=== PATIENT | female | born 1970 | race Caucasian/White ===

== ENCOUNTER 2017-10-11 00:51 | Emergency (ER) | payer OTHER ==
[~2017-10-11] VITALS: Ht 144.8 cm; Wt 63.5 kg
[~2017-10-11 00:51] MED LIST: CEPH500; GLIM2 PO; LOSHYD PO; OMEPRAZOLE MAGN20 MG PO; Pyridium200 MG; Zofran8 MG PO
[2017-10-11] MEDS ORDERED: DILTIAZEM 24HR240 M1 PO (01:15)
[2017-10-11] MEDS ORDERED: METO25ER PO (01:16)
[2017-10-11] MEDS ORDERED: Doxycycline Hy100 MG PO (01:39)
== END 2017-10-11 01:57 | disposition home or self-care (01) ==
LOC: ER 00:51
DX: L02.416 Cutaneous abscess of left lower limb (principal); L03.116 Cellulitis of left lower limb; Z88.8 Allergy status to other drugs, medicaments and biological substances; Z88.2 Allergy status to sulfonamides; Z88.0 Allergy status to penicillin; Z91.040 Latex allergy status; Z79.899 Other long term (current) drug therapy; Z79.2 Long term (current) use of antibiotics; E11.9 Type 2 diabetes mellitus without complications; K21.9 Gastro-esophageal reflux disease without esophagitis; I10 Essential (primary) hypertension; F17.200 Nicotine dependence, unspecified, uncomplicated
CPT/HCPCS: 10060; 99283-25

== ENCOUNTER 2018-06-14 17:11 | Inpatient (IN) | payer OTHER ==
[~2018-06-14] VITALS: Ht 144.8 cm; Wt 59.0 kg
[~2018-06-14 17:11] MED LIST changes: +DILTIAZEM 24HR240 M1 PO; +Doxycycline Hy100 MG PO; +METO25ER PO; +Norco 5-325 Ta1 EACH PO; +PROM25 PO; +Ultram50 MG PO; +Vibramycin100 MG PO
[2018-06-14] MEDS ORDERED: NAPR220 PO (17:54)
[2018-06-14 18:12] LABS: BASOPHILS ABSOLUTE AUTO 0.05 K/mm3 (0.00-0.23); BASOPHILS PERCENT AUTO 0 % (0-2); EOSINOPHILS ABSOLUTE AUTO 0.11 K/mm3 (0.00-0.68); EOSINOPHILS PERCENT AUTO 1 % (0-6); Hematocrit 45.5 % (33.0-51.0); Hemoglobin 14.9 g/dL (11.5-16.0); IMMATURE GRAN ABSOLUTE AUTO 0.06 K/mm3 (0.00-0.10); IMMATURE GRAN PERCENT AUTO 1 % (0-1); LYMPHOCYTES ABSOLUTE AUTO 0.98 K/mm3 (0.84-5.20); LYMPHOCYTES PERCENT AUTO 8 % (21-46); MONOCYTES ABSOLUTE AUTO 0.76 K/mm3 (0.16-1.47); MONOCYTES PERCENT AUTO 6 % (4-13); Mean Corpuscular HGB 29.9 pg (26.0-34.0); Mean Corpuscular HGB Conc 32.7 g/dL (31.5-36.5); Mean Corpuscular Volume 91 fL (80-100); Mean Platelet Volume 11.9 fL (9.1-12.4); NEUTROPHILS PERCENT AUTO 85 % (41-73); Platelet Count 153 K/mm3 (150-400); RDW Coefficient Variation 12.6 % (11.7-14.2); RDW Standard Deviation 41.7 fL (35.1-46.3); Red Blood Cell Count 4.99 M/mm3 (3.80-5.20); White Blood Cell Count 13.06 K/mm3 (4.00-11.30)
[2018-06-14 18:31] LABS: Alanine Aminotransfer (ALT/SGP 29 U/L (12-78); Albumin, Blood 3.3 g/dL (3.4-5.0); Albumin/Globulin Ratio 0.7 (0.8-1.8); Alk Phos 125 U/L (50-136); Anion Gap 8 mmol/L (6-16); Aspartate Aminotrans (AST/SGOT 17 U/L (12-37); Bilirubin, Total 0.5 mg/dL (0.1-1.0); Blood Urea Nitrogen 15 mg/dL (8-24); Bun/Creatinine Ratio 20.8 (12.0-20.0); CO2, Blood 25 mmol/L (21-32); Calcium, Blood 9.5 mg/dL (8.5-10.1); Chloride, Blood 97 mmol/L (98-108); Creatinine, Blood 0.72 mg/dL (0.40-1.00); Globulin, Blood 4.7 g/dL (2.2-4.0); Glomerular Filtration Rate >60 (60-); Glucose, Blood 395 mg/dL (70-99); Potassium, Blood 4.3 mmol/L (3.5-5.5); Sodium, Blood 130 mmol/L (136-145)
[2018-06-14] MEDS ORDERED: LOSARTAN-HCTZ1 EACH PO (20:34)
[2018-06-14] MEDS ORDERED: METO25ER PO (20:35)
[2018-06-14] MEDS ORDERED: DILT120 PO (20:35)
[2018-06-14] MEDS ORDERED: GLIM2 PO (20:36)
[2018-06-14] MEDS ORDERED: OMEPRAZOLE MAGN20 MG PO (20:37)
[2018-06-14] MEDS ORDERED: TRAM50 PO (20:38)
--- NOTE | 2018-06-15 07:23 | NUR ---
a+o, photo of wounds in chart, call light in reach, pain controlled with medication, saline locked room air, walking rounds completed with day shift
[2018-06-15 13:33] LABS: Vancomycin, Trough 11.3 ug/mL (5.0-10.0)
--- NOTE | 2018-06-15 18:47 | NUR ---
SHIFT SUMMARY PATIENT REMAINS AXO. PAIN MANAGEMENT IS DIFFICULT. A CALL IS BEING PLACED TO HER PHYSICIAN TO DISCUSS SOMETHING FURTHER.
[2018-06-16 05:39] LABS: BASOPHILS ABSOLUTE AUTO 0.05 K/mm3 (0.00-0.23); BASOPHILS PERCENT AUTO 1 % (0-2); EOSINOPHILS ABSOLUTE AUTO 0.36 K/mm3 (0.00-0.68); EOSINOPHILS PERCENT AUTO 5 % (0-6); Hematocrit 38.7 % (33.0-51.0); Hemoglobin 12.4 g/dL (11.5-16.0); IMMATURE GRAN ABSOLUTE AUTO 0.04 K/mm3 (0.00-0.10); IMMATURE GRAN PERCENT AUTO 1 % (0-1); LYMPHOCYTES ABSOLUTE AUTO 1.83 K/mm3 (0.84-5.20); LYMPHOCYTES PERCENT AUTO 26 % (21-46); MONOCYTES ABSOLUTE AUTO 0.45 K/mm3 (0.16-1.47); MONOCYTES PERCENT AUTO 6 % (4-13); Mean Corpuscular HGB 29.5 pg (26.0-34.0); Mean Corpuscular Volume 92 fL (80-100); Mean Platelet Volume 11.8 fL (9.1-12.4); NEUTROPHILS ABSOLUTE AUTO 4.32 K/mm3 (1.96-9.15); NEUTROPHILS PERCENT AUTO 61 % (41-73); Platelet Count 147 K/mm3 (150-400); RDW Coefficient Variation 12.7 % (11.7-14.2); RDW Standard Deviation 42.8 fL (35.1-46.3); White Blood Cell Count 7.05 K/mm3 (4.00-11.30)
[2018-06-16 06:05] LABS: Anion Gap 7 mmol/L (6-16); Blood Urea Nitrogen 14 mg/dL (8-24); Bun/Creatinine Ratio 27.1 (12.0-20.0); CO2, Blood 25 mmol/L (21-32); Calcium, Blood 8.8 mg/dL (8.5-10.1); Chloride, Blood 105 mmol/L (98-108); Creatinine, Blood 0.52 mg/dL (0.40-1.00); Glomerular Filtration Rate >60 (60-); Glucose, Blood 158 mg/dL (70-99); Sodium, Blood 137 mmol/L (136-145)
--- NOTE | 2018-06-16 06:22 | NUR ---
SHIFT SUMMARY PT A/O INDEPENDENT. C/O PAIN IN HEAD AND R BUTTOCK I&D AREA AND MEDICATED PER EMAR X2. SHE WAS ABLE TO SLEEP T/O NIGHT AFTER THAT. SHE STATED THAT HER I&D WOULD WAS DRAINING LESS THAN IT HAD BEEN PREVIOUSLY. WENT OUTSIDE TO SMOKE ONCE. CALL LIGHT IN REACH.
--- NOTE | 2018-06-16 18:31 | NUR ---
SHIFT SUMMARY PT INDEPENDENT IN ROOM. HAS GONE OUT TO SMOKE THIS MORNING AND HASN'T SINCE. FAMIY IN TO VISIT THIS EVENING. REPORTS LEGS ARE RESTLESS IN BED AND BOTHERING HER. ENCOURAGED HER TO WALK AROUND MORE TO EASE DISCOMFORT. DR. LUDWIG IN TO SEE PT THIS MORNING SHORTLY AFTER BREAKFAST AND LANCED R FOREHEAD SCAB. PT REPORTS HE GOT MORE THAN ANTICIPATED. ALSO REPORTS DR. LUDWIG REMOVED PACKING IN BUTTOCK WOUND. NO NEW DRESSING REQUIRED. DRESSING IN PLACE TO R FOREHEAD WITH NO BREAKTHROUGH DRAINAGE.
[2018-06-17 05:24] LABS: BASOPHILS ABSOLUTE AUTO 0.04 K/mm3 (0.00-0.23); BASOPHILS PERCENT AUTO 1 % (0-2); EOSINOPHILS ABSOLUTE AUTO 0.33 K/mm3 (0.00-0.68); EOSINOPHILS PERCENT AUTO 5 % (0-6); Hematocrit 37.4 % (33.0-51.0); Hemoglobin 12.2 g/dL (11.5-16.0); IMMATURE GRAN ABSOLUTE AUTO 0.03 K/mm3 (0.00-0.10); IMMATURE GRAN PERCENT AUTO 1 % (0-1); LYMPHOCYTES PERCENT AUTO 30 % (21-46); MONOCYTES ABSOLUTE AUTO 0.45 K/mm3 (0.16-1.47); MONOCYTES PERCENT AUTO 7 % (4-13); Mean Corpuscular HGB 29.7 pg (26.0-34.0); Mean Corpuscular HGB Conc 32.6 g/dL (31.5-36.5); Mean Corpuscular Volume 91 fL (80-100); Mean Platelet Volume 11.8 fL (9.1-12.4); NEUTROPHILS ABSOLUTE AUTO 3.54 K/mm3 (1.96-9.15); NEUTROPHILS PERCENT AUTO 56 % (41-73); Platelet Count 153 K/mm3 (150-400); RDW Coefficient Variation 12.6 % (11.7-14.2); RDW Standard Deviation 41.2 fL (35.1-46.3); Red Blood Cell Count 4.11 M/mm3 (3.80-5.20); White Blood Cell Count 6.29 K/mm3 (4.00-11.30)
--- NOTE | 2018-06-17 05:46 | NUR ---
SHIFT SUMMARY PT WENT OUTSIDE X1 THIS SHIFT, REMOVED NICOTINE PATCH SO SHE COULD SMOKE. PT SLEPT WELL T/O NIGHT. PT RECEIVED PAIN MEDICATION AT BEDTIME. SALINE FIELD SEISMOLOGIST WITH FLUSH, BUT MEDICATIONS INFUSE WELL, WILL KEEP AN EYE ON IT. PT STATES SHE HAS ALREADY HAD 3 IV'S SINCE BEING ADMITTED BECAUSE HER VEINS BECOME TOO TENDER. NO ACUTE EVENTS NOTED DURING THE NIGHT, WILL CONTINUE TO MONITOR.
[2018-06-17 05:47] LABS: Anion Gap 5 mmol/L (6-16); Blood Urea Nitrogen 12 mg/dL (8-24); Bun/Creatinine Ratio 21.3 (12.0-20.0); CO2, Blood 28 mmol/L (21-32); Calcium, Blood 8.6 mg/dL (8.5-10.1); Chloride, Blood 105 mmol/L (98-108); Creatinine, Blood 0.56 mg/dL (0.40-1.00); Glomerular Filtration Rate >60 (60-); Glucose, Blood 109 mg/dL (70-99); Potassium, Blood 3.8 mmol/L (3.5-5.5); Sodium, Blood 138 mmol/L (136-145)
[2018-06-17 14:02] LABS: Vancomycin, Trough 21.5 ug/mL (5.0-10.0)
--- NOTE | 2018-06-17 17:54 | NUR ---
SUMMARY PT IS A/O X4, UP IND IN ROOM/AMBULATE OUTSIDE. SHE STATE PAIN @ ABC[facility] SITE S/P I&D R BUTTOCK & ALSO R EYE AREA, GAVE IV DILAUDID 1 MG THIS AM & ULTRAM 100MG THIS AFTERNOON FOR CONTROL/RELIEF. BACTROBAN OINT TO SITE R EYE AREA & L ABD FOLD. PT STATE MODESTY R/T R BUTTOCKS ASSESSMENT, FEMALE DOPE HOUSE OPERATOR HELPER IN TO ASSESS AREA, STATE NO DRAINAGE @ THIS TIME, STATE OK FOR PT TO COVER W PERIPAD & MADONNA UNDERWEAR TO KEEP IN PLACE. IV ANTIBX CONTINUE. IV SITE RFA TENDER, PINK, SWOLLEN THIS AM, D/C'D. DOPE HOUSE OPERATOR HELPER PLACE NEW 20GA MADHU. VSS.
[2018-06-18 05:45] LABS: BASOPHILS ABSOLUTE AUTO 0.03 K/mm3 (0.00-0.23); BASOPHILS PERCENT AUTO 1 % (0-2); EOSINOPHILS ABSOLUTE AUTO 0.28 K/mm3 (0.00-0.68); EOSINOPHILS PERCENT AUTO 5 % (0-6); Hematocrit 37.7 % (33.0-51.0); Hemoglobin 12.1 g/dL (11.5-16.0); IMMATURE GRAN ABSOLUTE AUTO 0.02 K/mm3 (0.00-0.10); IMMATURE GRAN PERCENT AUTO 0 % (0-1); LYMPHOCYTES ABSOLUTE AUTO 1.68 K/mm3 (0.84-5.20); LYMPHOCYTES PERCENT AUTO 28 % (21-46); MONOCYTES ABSOLUTE AUTO 0.34 K/mm3 (0.16-1.47); MONOCYTES PERCENT AUTO 6 % (4-13); Mean Corpuscular HGB 29.2 pg (26.0-34.0); Mean Corpuscular HGB Conc 32.1 g/dL (31.5-36.5); Mean Corpuscular Volume 91 fL (80-100); Mean Platelet Volume 11.8 fL (9.1-12.4); NEUTROPHILS ABSOLUTE AUTO 3.67 K/mm3 (1.96-9.15); NEUTROPHILS PERCENT AUTO 61 % (41-73); Platelet Count 147 K/mm3 (150-400); RDW Coefficient Variation 12.4 % (11.7-14.2); RDW Standard Deviation 41.1 fL (35.1-46.3); Red Blood Cell Count 4.14 M/mm3 (3.80-5.20); White Blood Cell Count 6.02 K/mm3 (4.00-11.30)
--- NOTE | 2018-06-18 05:51 | NUR ---
SHIFT SUMMARY PT HAVING C/O'S IV SITE FEELING TENDER AND SORE, UNABLE TO FLUSH WITHOUT PT MOANING IN PAIN. SIGHT SLIGHTLY REDDENED. IV DC'D. 2 ICU NURSES UP WITH U/S MACHINE AND TRIED GETTING ANOTHER IV IN X 3 ATTEMPTS. PT REFUSING TO HAVE ANOTHER IV PLACED. HOSPITALIST CALLED, ORDERS RECEIVED FOR PO ANTIBIOTICS DURING THE NIGHT AND POSSIBLE PLACEMENT OF PICC TODAY PENDING DOCTOR ROUNDS. PT OUTSIDE FOR A SMOKE X2 THIS SHIFT. SLEPT FAIR. WILL CONTINUE TO MONITOR.
[2018-06-18] MEDS ORDERED: ACET325 PO (16:29)
[2018-06-18] MEDS ORDERED: CEPH500 PO (16:30)
[2018-06-18] MEDS ORDERED: DOXY100 PO (16:31)
[2018-06-18] MEDS ORDERED: Norco 5-325 Ta1 EACH PO (16:32)
[2018-06-18] MEDS ORDERED: INSDET100 SC (16:33)
[2018-06-18] MEDS ORDERED: KETO10 PO (16:34)
[2018-06-18] MEDS ORDERED: Mupirocin22 GM TOP (16:35)
[2018-06-18] MEDS ORDERED: ONDA4ODT MM (16:36)
[2018-06-18] MEDS ORDERED: Nicoderm Cq1 EAC1 TOP (16:36)
[2018-06-18] MEDS ORDERED: GAVILAX17 GM PO (16:37)
[2018-06-18] MEDS ORDERED: Florastor250 MG PO (16:37)
--- NOTE | 2018-06-18 19:22 | NUR ---
DISCHARGE SUMMARY PATIENT A&O X4, INDEPENDENT. C/O PAIN TO FOREHEAD AND BUTTOCKS THROUGHOUT SHIFT. MEDICATED PER EMAR. MEDICATED X 1 FOR NAUSEA. WOUND TO RIGHT FOREHEAD AND RIGHT BUTTOCKS DRESSING IN PLACE, C/D/I. INSULIN ADMINISTRATION EDUCATION PROVIDED FOR THE PATIENT. DEMONONSTRATION BY RN AND RE DEMONSTRATION BY PATIENT WAS PREFORMED. NO ACUTE CHANGES. ALL DISCHARGE IN STRUCTIONS REVIEWED. MEDICATIONS FAXED. PT NEEDS PRIMARY CARE SET UP WITH DR. POWELL AT [facility]. MESSAGE LEFT WITH QUALITY CONTROL EXPERT COORDINATOR TO FOLLOW UP WITH PT FOR PU APPTS. NO IV ACCESS. PATIENT WALKED OUT. FAMILY BY HER SIDE. ALL BELONINGINGS IN PLACE.
== END 2018-06-18 19:02 | disposition home or self-care (01) | DRG 872 ==
LOC: ER 17:11 → MEDS 20:26 → ENPENDDIS 06-18 15:23 → MEDS 06-18 19:02
PROVIDERS: Emergency Medicine; Family Medicine; ADMIT Internal Medicine
PROC: 0H98XZX Drainage of Buttock Skin, External Approach, Diagnostic (ICD-10-PCS; principal; 2018-06-14)
PROC: 0H91XZZ Drainage of Face Skin, External Approach (ICD-10-PCS; 2018-06-16)
DX: A41.02 Sepsis due to Methicillin resistant Staphylococcus aureus (principal); L03.213 Periorbital cellulitis; L03.317 Cellulitis of buttock; E87.1 Hypo-osmolality and hyponatremia; L02.01 Cutaneous abscess of face; L03.211 Cellulitis of face; E11.9 Type 2 diabetes mellitus without complications; R65.20 Severe sepsis without septic shock; I10 Essential (primary) hypertension; K21.9 Gastro-esophageal reflux disease without esophagitis; K44.9 Diaphragmatic hernia without obstruction or gangrene; F17.210 Nicotine dependence, cigarettes, uncomplicated; Z79.4 Long term (current) use of insulin
CPT/HCPCS: 10061; 36415; 70480; 70481; 80048; 80053; 80202; 82947; 83036; 83605; 84443; 85025; 87070; 87075; 87077; 87147; 87186; 87205; 93005; 93010; 96361-59; 96365-59; 96367-59; 96375-59; 96376-59; 99284-25; A9270-GY; J0690; J1170; J1200; J1650; J1885; J2405; J3010; J3370; J7030; J7050; Q9967

== ENCOUNTER → 2018-07-22 | Outpatient (CLI) | payer OTHER ==
[~2018-07-22] MED LIST changes: +ACET325 PO; +CEPH500 PO; +DILT120 PO; +DOXY100 PO; +Florastor250 MG PO; +GAVILAX17 GM PO; +INSDET100 SC; +KETO10 PO; +LOSARTAN-HCTZ1 EACH PO; +Mupirocin22 GM TOP; +NAPR220 PO; +Nicoderm Cq1 EAC1 TOP; +ONDA4ODT MM; +TRAM50 PO
[2018-07-24 03:09] LABS: CHLAMYDIA TRACHOMATIS, NAA Negative (Negative); NEISSERIA GONORRHOEAE, NAA Negative (Negative)
== END | disposition home or self-care (01) ==
LOC: LAB EV 10:35 → LAB SHORT 10:35
PROVIDERS: Nurse Practitioner
DX: Z72.51 High risk heterosexual behavior (principal)
CPT/HCPCS: 87491; 87591

== ENCOUNTER 2019-02-28 10:49 | Emergency (ER) | payer OTHER ==
[~2019-02-28] VITALS: Ht 144.8 cm; Wt 60.8 kg
[2019-02-28 11:44] LABS: BASOPHILS ABSOLUTE AUTO 0.03 K/mm3 (0.00-0.23); BASOPHILS PERCENT AUTO 1 % (0-2); EOSINOPHILS ABSOLUTE AUTO 0.08 K/mm3 (0.00-0.68); EOSINOPHILS PERCENT AUTO 1 % (0-6); Hematocrit 50.2 % (33.0-51.0); Hemoglobin 16.6 g/dL (11.5-16.0); IMMATURE GRAN ABSOLUTE AUTO 0.02 K/mm3 (0.00-0.10); IMMATURE GRAN PERCENT AUTO 0 % (0-1); LYMPHOCYTES ABSOLUTE AUTO 1.51 K/mm3 (0.84-5.20); LYMPHOCYTES PERCENT AUTO 24 % (21-46); MONOCYTES ABSOLUTE AUTO 0.28 K/mm3 (0.16-1.47); MONOCYTES PERCENT AUTO 5 % (4-13); Mean Corpuscular HGB Conc 33.1 g/dL (31.5-36.5); Mean Corpuscular Volume 91 fL (80-100); NEUTROPHILS ABSOLUTE AUTO 4.35 K/mm3 (1.96-9.15); NEUTROPHILS PERCENT AUTO 69 % (41-73); Platelet Count 169 K/mm3 (150-400); RDW Coefficient Variation 12.8 % (11.7-14.2); RDW Standard Deviation 42.5 fL (35.1-46.3); Red Blood Cell Count 5.53 M/mm3 (3.80-5.20); White Blood Cell Count 6.27 K/mm3 (4.00-11.30)
[2019-02-28 11:59] LABS: Alanine Aminotransfer (ALT/SGP 45 U/L (12-78); Albumin, Blood 4.4 g/dL (3.4-5.0); Albumin/Globulin Ratio 0.8 (0.8-1.8); Alk Phos 161 U/L (50-136); Anion Gap 9 mmol/L (6-16); Aspartate Aminotrans (AST/SGOT 29 U/L (12-37); Bilirubin, Total 0.3 mg/dL (0.1-1.0); Blood Urea Nitrogen 17 mg/dL (8-24); Bun/Creatinine Ratio 28.8 (12.0-20.0); CO2, Blood 26 mmol/L (21-32); Calcium, Blood 10.1 mg/dL (8.5-10.1); Chloride, Blood 98 mmol/L (98-108); Creatinine, Blood 0.59 mg/dL (0.40-1.00); Globulin, Blood 5.2 g/dL (2.2-4.0); Glomerular Filtration Rate >60 (60-); Glucose, Blood 375 mg/dL (70-99); Potassium, Blood 4.6 mmol/L (3.5-5.5); Sodium, Blood 133 mmol/L (136-145); Total Protein, Blood 9.6 g/dL (6.4-8.2)
[2019-02-28 12:19] LABS: Source, Urine Clean Catch
[2019-02-28 12:23] LABS: Appearance, Urine Clear (Clear); Bilirubin, Urine Neg (Neg); Blood, Urine Neg (Neg); Color, Urine Yellow (P-Yellow); Glucose Qualitative, Urine 4+ (Neg); Ketones, Urine Neg (Neg); Leukocyte Esterase, Urine Neg (Neg); Nitrite, Urine Neg (Neg); Protein, Urine Neg (Neg); Urobilinogen, Urine NORM (Normal)
[2019-02-28] MEDS ORDERED: Percocet 5-3251 EACH PO (15:45)
[2019-02-28] MEDS ORDERED: Naprosyn500 MG PO (15:45)
== END 2019-02-28 16:23 | disposition home or self-care (01) ==
LOC: ER 10:49
PROVIDERS: Emergency Medicine
DX: E11.9 Type 2 diabetes mellitus without complications (principal); M54.5 Low back pain; I10 Essential (primary) hypertension; K21.9 Gastro-esophageal reflux disease without esophagitis; F17.210 Nicotine dependence, cigarettes, uncomplicated; Z91.040 Latex allergy status; Z88.2 Allergy status to sulfonamides; Z88.0 Allergy status to penicillin; Z88.8 Allergy status to other drugs, medicaments and biological substances; Z79.899 Other long term (current) drug therapy; Z79.4 Long term (current) use of insulin
CPT/HCPCS: 36415; 72100; 80053; 81003; 83690; 85025; 96372; 99283-25; J1170; J2550

== ENCOUNTER 2019-04-24 15:39 | Emergency (ER) | payer OTHER ==
[~2019-04-24] VITALS: Ht 144.8 cm; Wt 60.3 kg
[~2019-04-24 15:39] MED LIST changes: +Naprosyn500 MG PO; +Percocet 5-3251 EACH PO
[2019-04-24 16:25] LABS: BASOPHILS ABSOLUTE AUTO 0.06 K/mm3 (0.00-0.23); BASOPHILS PERCENT AUTO 1 % (0-2); EOSINOPHILS ABSOLUTE AUTO 0.12 K/mm3 (0.00-0.68); EOSINOPHILS PERCENT AUTO 1 % (0-6); Hematocrit 48.2 % (33.0-51.0); Hemoglobin 16.1 g/dL (11.5-16.0); IMMATURE GRAN ABSOLUTE AUTO 0.03 K/mm3 (0.00-0.10); IMMATURE GRAN PERCENT AUTO 0 % (0-1); LYMPHOCYTES ABSOLUTE AUTO 2.03 K/mm3 (0.84-5.20); LYMPHOCYTES PERCENT AUTO 23 % (21-46); MONOCYTES ABSOLUTE AUTO 0.44 K/mm3 (0.16-1.47); MONOCYTES PERCENT AUTO 5 % (4-13); Mean Corpuscular HGB 30.5 pg (26.0-34.0); Mean Corpuscular HGB Conc 33.4 g/dL (31.5-36.5); Mean Corpuscular Volume 91 fL (80-100); NEUTROPHILS PERCENT AUTO 69 % (41-73); Platelet Count 212 K/mm3 (150-400); RDW Coefficient Variation 12.5 % (11.7-14.2); RDW Standard Deviation 41.9 fL (35.1-46.3); Red Blood Cell Count 5.28 M/mm3 (3.80-5.20); White Blood Cell Count 8.68 K/mm3 (4.00-11.30)
[2019-04-24 16:45] LABS: Alanine Aminotransfer (ALT/SGP 31 U/L (12-78); Albumin, Blood 3.6 g/dL (3.4-5.0); Albumin/Globulin Ratio 0.8 (0.8-1.8); Alk Phos 113 U/L (50-136); Anion Gap 2 mmol/L (6-16); Aspartate Aminotrans (AST/SGOT 22 U/L (12-37); Bilirubin, Total 0.4 mg/dL (0.1-1.0); Blood Urea Nitrogen 15 mg/dL (8-24); Bun/Creatinine Ratio 26.9 (12.0-20.0); CO2, Blood 27 mmol/L (21-32); Chloride, Blood 104 mmol/L (98-108); Creatinine, Blood 0.56 mg/dL (0.40-1.00); Globulin, Blood 4.3 g/dL (2.2-4.0); Glomerular Filtration Rate >60 (60-); Glucose, Blood 324 mg/dL (70-99); Potassium, Blood 3.6 mmol/L (3.5-5.5); Sodium, Blood 133 mmol/L (136-145); Total Protein, Blood 7.9 g/dL (6.4-8.2)
[2019-04-24] MEDS ORDERED: Aspirin EC81 MG PO (19:51)
== END 2019-04-24 20:06 | disposition home or self-care (01) ==
LOC: ER 15:39
PROVIDERS: Physician Assistant
DX: R20.2 Paresthesia of skin (principal); E11.65 Type 2 diabetes mellitus with hyperglycemia; I10 Essential (primary) hypertension; K21.9 Gastro-esophageal reflux disease without esophagitis; F17.210 Nicotine dependence, cigarettes, uncomplicated; Z88.0 Allergy status to penicillin; Z88.2 Allergy status to sulfonamides; Z91.040 Latex allergy status; Z88.8 Allergy status to other drugs, medicaments and biological substances; Z79.4 Long term (current) use of insulin; Z79.899 Other long term (current) drug therapy
CPT/HCPCS: 36415; 70450; 80053; 85025; 93005; 93010; A9270-GY

== ENCOUNTER → 2022-09-25 | Outpatient (CLI) | payer OTHER ==
[~2022-09-25] MED LIST changes: +Aspirin EC81 MG PO
== END ==
LOC: LAB SHORT 15:55 → LAB 15:55
DX: N39.0 Urinary tract infection, site not specified (principal)
CPT/HCPCS: 87077; 87086; 87186

== ENCOUNTER 2022-11-19 17:43 | Emergency (ER) | payer OTHER ==
[~2022-11-19] VITALS: Ht 144.8 cm; Wt 53.1 kg
[2022-11-19 19:07] LABS: BASOPHILS ABSOLUTE AUTO 0.05 K/mm3 (0.00-0.23); BASOPHILS PERCENT AUTO 0 % (0-2); EOSINOPHILS ABSOLUTE AUTO 0.05 K/mm3 (0.00-0.68); EOSINOPHILS PERCENT AUTO 0 % (0-6); Hematocrit 48.9 % (33.0-51.0); Hemoglobin 16.1 g/dL (11.5-16.0); IMMATURE GRAN ABSOLUTE AUTO 0.08 K/mm3 (0.00-0.10); IMMATURE GRAN PERCENT AUTO 1 % (0-1); LYMPHOCYTES ABSOLUTE AUTO 1.68 K/mm3 (0.84-5.20); LYMPHOCYTES PERCENT AUTO 11 % (21-46); MONOCYTES ABSOLUTE AUTO 0.87 K/mm3 (0.16-1.47); MONOCYTES PERCENT AUTO 6 % (4-13); Mean Corpuscular HGB 30.6 pg (26.0-34.0); Mean Corpuscular HGB Conc 32.9 g/dL (31.5-36.5); Mean Corpuscular Volume 93 fL (80-100); NEUTROPHILS PERCENT AUTO 82 % (41-73); Platelet Count 203 K/mm3 (150-400); RDW Coefficient Variation 13.1 % (11.7-14.2); RDW Standard Deviation 44.3 fL (35.1-46.3); Red Blood Cell Count 5.27 M/mm3 (3.80-5.20); White Blood Cell Count 15.23 K/mm3 (4.00-11.30)
[2022-11-19 19:26] LABS: Albumin/Globulin Ratio 0.8 (0.8-1.8); Bilirubin, Total 0.4 mg/dL (0.1-1.0); Bun/Creatinine Ratio 24.5 (12.0-20.0); Calcium, Blood 9.8 mg/dL (8.5-10.1); Creatinine, Blood 1.02 mg/dL (0.40-1.00); Globulin, Blood 5.2 g/dL (2.2-4.0); Total Protein, Blood 9.2 g/dL (6.4-8.2)
[2022-11-19 22:22] VITALS: BP 130/87
[2022-11-21] MEDS ORDERED: METR500 PO (20:16)
[2022-11-21] MEDS ORDERED: DICY20 PO (20:16)
[2022-11-21] MEDS ORDERED: Percocet 5-3251 EACH PO ×2 (20:16→20:19)
== END 2022-11-20 00:53 | disposition home or self-care (01) ==
LOC: ER 17:43
PROVIDERS: Emergency Medicine
DX: K52.9 Noninfective gastroenteritis and colitis, unspecified (principal); R00.0 Tachycardia, unspecified; F17.210 Nicotine dependence, cigarettes, uncomplicated
CPT/HCPCS: 74177; 80053; 83690; 85025; 93005; 93010; 96361; 96374; 96375; 96376; 99285-25; A9270; J1170; J2405; J7030; Q9967

== ENCOUNTER → 2022-11-20 | Outpatient (CLI) | payer OTHER ==
[~2022-11-20] MED LIST changes: +DICY20 PO; +METR500 PO
[2022-11-20 14:17] LABS: Adenovirus F 40/41 Not Detected (NOT DETECT); Astrovirus Not Detected (NOT DETECT); Campylobacter Sp Not Detected (NOT DETECT); Cryptosporidium Not Detected (NOT DETECT); Cyclospora Cayetanensis Not Detected (NOT DETECT); E. Coli O157 Not Detected (NOT DETECT); Entamoeba Histolytica Not Detected (NOT DETECT); Enteroaggregative E. coli-EAEC Not Detected (NOT DETECT); Enteropathogenic E. coli-EPEC Not Detected (NOT DETECT); Enterotoxigenic E. coli-ETEC Not Detected (NOT DETECT); Giardia Lamblia Not Detected (NOT DETECT); Norovirus GI/GII Not Detected (NOT DETECT); Plesiomonas Shigelloides Not Detected (NOT DETECT); Rotavirus A Not Detected (NOT DETECT); Salmonella Sp Not Detected (NOT DETECT); Sapovirus Not Detected (NOT DETECT); Shiga Toxin-prod E. coli-STEC Not Detected (NOT DETECT); Shigella/Enteroin E. coli-EIEC Not Detected (NOT DETECT); Vibrio Cholerae Not Detected (NOT DETECT); Vibrio Sp Not Detected (NOT DETECT); Yersinia Enterocolitica Not Detected (NOT DETECT)
== END ==
LOC: LAB 12:02 → LAB SHORT 12:02
PROVIDERS: Internal Medicine Gastroenterology
DX: K52.9 Noninfective gastroenteritis and colitis, unspecified (principal)
CPT/HCPCS: 87507

== ENCOUNTER 2022-11-21 14:28 | Emergency (ER) | payer OTHER ==
[~2022-11-21] VITALS: Ht 144.8 cm; Wt 53.1 kg
[~2022-11-21 14:28] MED LIST changes: -DICY20 PO; -METR500 PO
[2022-11-21 15:29] LABS: BASOPHILS ABSOLUTE AUTO 0.03 K/mm3 (0.00-0.23); BASOPHILS PERCENT AUTO 0 % (0-2); EOSINOPHILS PERCENT AUTO 1 % (0-6); Hematocrit 44.7 % (33.0-51.0); Hemoglobin 14.7 g/dL (11.5-16.0); IMMATURE GRAN ABSOLUTE AUTO 0.03 K/mm3 (0.00-0.10); IMMATURE GRAN PERCENT AUTO 0 % (0-1); LYMPHOCYTES ABSOLUTE AUTO 1.77 K/mm3 (0.84-5.20); LYMPHOCYTES PERCENT AUTO 21 % (21-46); MONOCYTES ABSOLUTE AUTO 0.49 K/mm3 (0.16-1.47); MONOCYTES PERCENT AUTO 6 % (4-13); Mean Corpuscular HGB 30.6 pg (26.0-34.0); Mean Corpuscular HGB Conc 32.9 g/dL (31.5-36.5); Mean Corpuscular Volume 93 fL (80-100); Mean Platelet Volume 11.9 fL (9.1-12.4); NEUTROPHILS ABSOLUTE AUTO 5.94 K/mm3 (1.96-9.15); NEUTROPHILS PERCENT AUTO 71 % (41-73); Platelet Count 159 K/mm3 (150-400); RDW Standard Deviation 44.3 fL (35.1-46.3); Red Blood Cell Count 4.81 M/mm3 (3.80-5.20); White Blood Cell Count 8.36 K/mm3 (4.00-11.30)
[2022-11-21 15:48] LABS: Albumin, Blood 3.7 g/dL (3.4-5.0); Bilirubin, Total 0.3 mg/dL (0.1-1.0); Bun/Creatinine Ratio 15.1 (12.0-20.0); Calcium, Blood 9.2 mg/dL (8.5-10.1); Creatinine, Blood 0.73 mg/dL (0.40-1.00); Globulin, Blood 3.7 g/dL (2.2-4.0); Magnesium, Blood 1.8 mg/dL (1.6-2.4); Potassium, Blood 3.5 mmol/L (3.5-5.5); Total Protein, Blood 7.4 g/dL (6.4-8.2)
[2022-11-21] MEDS ORDERED: DICY20 PO (20:16)
[2022-11-21] MEDS ORDERED: Percocet 5-3251 EACH PO ×2 (20:16→20:19)
[2022-11-21] MEDS ORDERED: METR500 PO (20:16)
[2022-11-21 21:03] VITALS: BP 152/90
== END 2022-11-21 21:04 | disposition home or self-care (01) ==
LOC: ER 14:28
PROVIDERS: Physician Assistant
DX: K52.9 Noninfective gastroenteritis and colitis, unspecified (principal); E11.9 Type 2 diabetes mellitus without complications; I10 Essential (primary) hypertension; K21.9 Gastro-esophageal reflux disease without esophagitis; F17.210 Nicotine dependence, cigarettes, uncomplicated; Z88.8 Allergy status to other drugs, medicaments and biological substances; Z88.2 Allergy status to sulfonamides; Z88.1 Allergy status to other antibiotic agents; Z88.0 Allergy status to penicillin; Z91.040 Latex allergy status; Z79.899 Other long term (current) drug therapy; Z79.4 Long term (current) use of insulin; Z79.82 Long term (current) use of aspirin
CPT/HCPCS: 80053; 82947; 83690; 83735; 85025; 96361; 96372-59; 96374; 96375; 99283-25; A9270; J0500; J1170; J2405; J7030

== ENCOUNTER 2022-12-10 11:09 | Day surgery (SDC) | payer OTHER ==
[~2022-12-10] VITALS: Ht 144.8 cm; Wt 54.2 kg
[~2022-12-10 11:09] MED LIST changes: +DICY20 PO; +METR500 PO
[2022-12-10] MEDS ORDERED: TOUJEO MAX300 UNIT/2 (11:32)
[2022-12-10] MEDS ORDERED: Crestor40 MG (11:32)
[2022-12-10] MEDS ORDERED: JARDIANCE25 MG (11:32)
[2022-12-10] MEDS ORDERED: TRULICITY1.5 MG/0.1 (11:33)
[2022-12-10 15:32] VITALS: BP 128/84
== END 2022-12-10 13:31 | disposition home or self-care (01) ==
LOC: ORSCSDS 11:09
PROVIDERS: Internal Medicine Gastroenterology
PROC: 0DBE8ZX Excision of Large Intestine, Via Natural or Artificial Opening Endoscopic, Diagnostic (ICD-10-PCS; principal; 2022-12-10 12:15)
PROC: 0DB58ZX Excision of Esophagus, Via Natural or Artificial Opening Endoscopic, Diagnostic (ICD-10-PCS; principal; 2022-12-10 12:15)
PROC: 0DB98ZX Excision of Duodenum, Via Natural or Artificial Opening Endoscopic, Diagnostic (ICD-10-PCS; principal; 2022-12-10 12:15)
PROC: 0DBN8ZX Excision of Sigmoid Colon, Via Natural or Artificial Opening Endoscopic, Diagnostic (ICD-10-PCS; principal; 2022-12-10 12:15)
PROC: 0DB78ZX Excision of Stomach, Pylorus, Via Natural or Artificial Opening Endoscopic, Diagnostic (ICD-10-PCS; principal; 2022-12-10 12:15)
DX: K62.5 Hemorrhage of anus and rectum (principal); K21.9 Gastro-esophageal reflux disease without esophagitis; R10.84 Generalized abdominal pain; K31.7 Polyp of stomach and duodenum; R19.7 Diarrhea, unspecified; K57.30 Diverticulosis of large intestine without perforation or abscess without bleeding; K29.70 Gastritis, unspecified, without bleeding; Z87.891 Personal history of nicotine dependence; E11.9 Type 2 diabetes mellitus without complications; Z86.73 Personal history of transient ischemic attack (TIA), and cerebral infarction without residual deficits; Z79.899 Other long term (current) drug therapy; Z79.82 Long term (current) use of aspirin; Z79.4 Long term (current) use of insulin
CPT/HCPCS: 82947; 88305; A9270; J2704; J7120

== ENCOUNTER 2025-01-15 10:20 | Emergency (ER) | payer OTHER ==
[~2025-01-15] VITALS: Ht 144.8 cm; Wt 54.4 kg
[~2025-01-15 10:20] MED LIST changes: +Crestor40 MG; +JARDIANCE25 MG; +TOUJEO MAX300 UNIT/2; +TRULICITY1.5 MG/0.1
[2025-01-15] MEDS ORDERED: Ketorolac Tromethamine 15mg Vial IV ONE (11:10)
[2025-01-15 11:21] LABS: BASOPHILS ABSOLUTE AUTO 0.05 K/mm3 (0.00-0.23); BASOPHILS PERCENT AUTO 1 % (0-2); EOSINOPHILS ABSOLUTE AUTO 0.21 K/mm3 (0.00-0.68); EOSINOPHILS PERCENT AUTO 3 % (0-6); Hematocrit 46.1 % (33.0-51.0); Hemoglobin 15.3 g/dL (11.5-16.0); IMMATURE GRAN ABSOLUTE AUTO 0.04 K/mm3 (0.00-0.10); IMMATURE GRAN PERCENT AUTO 1 % (0-1); LYMPHOCYTES ABSOLUTE AUTO 1.58 K/mm3 (0.84-5.20); LYMPHOCYTES PERCENT AUTO 25 % (21-46); MONOCYTES ABSOLUTE AUTO 0.33 K/mm3 (0.16-1.47); MONOCYTES PERCENT AUTO 5 % (4-13); Mean Corpuscular HGB Conc 33.2 g/dL (31.5-36.5); Mean Corpuscular Volume 94 fL (80-100); NEUTROPHILS ABSOLUTE AUTO 4.05 K/mm3 (1.96-9.15); NEUTROPHILS PERCENT AUTO 65 % (41-73); NRBC ABSOLUTE 0.00 K/mm3 (0.00-0.02); NRBC Auto 0.0 /100 WBC (0.0-0.2); Platelet Count 139 K/mm3 (150-400); RDW Coefficient Variation 12.6 % (11.7-14.2); RDW Standard Deviation 43.7 fL (35.1-46.3)
[2025-01-15] MEDS ORDERED: FentaNYL Citrate 50 MCG/ML 2 ML Injection IV ONE (13:15)
[2025-01-15] MEDS ORDERED: Ondansetron HCl 2 MG / ML 2ML Vial IV ONE (13:15)
[2025-01-15 13:53] LABS: Source, Urine Clean Catch
[2025-01-15 14:06] LABS: Alanine Aminotransfer (ALT/SGP 56.0 U/L (12-78); Albumin, Blood 3.4 g/dL (3.4-5.0); Albumin/Globulin Ratio 0.9 (0.8-1.8); Anion Gap 8.0 mmol/L (3-11); Aspartate Aminotrans (AST/SGOT 45.0 U/L (12-37); Bilirubin, Total 0.3 mg/dL (0.1-1.0); Blood Urea Nitrogen 12.0 mg/dL (8-24); CO2, Blood 26.0 mmol/L (21-32); Calcium, Blood 8.7 mg/dL (8.5-10.1); Chloride, Blood 104.0 mmol/L (98-108); Creatinine, Blood 0.73 mg/dL (0.40-1.00); Globulin, Blood 3.7 g/dL (2.2-4.0); Glucose, Blood 329.0 mg/dL (70-99); Potassium, Blood 4.9 mmol/L (3.5-5.5); Sodium, Blood 133.0 mmol/L (136-145); Total Protein, Blood 7.1 g/dL (6.4-8.2)
[2025-01-15 14:45] LABS: Bilirubin, Urine Neg (Neg); Color, Urine Yellow (P-Yellow); Glucose Qualitative, Urine 4+ (Neg); Ketones, Urine 1+ (Neg); Leukocyte Esterase, Urine Neg (Neg); Protein, Urine 2+ (Neg); Specific Gravity, Urine 1.010 (1.003-1.022); Urobilinogen, Urine NORM (Normal)
[2025-01-15 15:16] LABS: White Blood Cells, Urine 0-2 /hpf (0-5)
[2025-01-15] MEDS ORDERED: ONDA4ODT MM (15:41)
[2025-01-15] MEDS ORDERED: TIZA4 PO (15:41)
[2025-01-15 15:44] VITALS: BP 125/77
== END 2025-01-15 15:47 | disposition home or self-care (01) ==
LOC: ER 10:20
PROVIDERS: Physician Assistant
DX: M62.838 Other muscle spasm (principal); R10.A2 Flank pain, left side; E11.9 Type 2 diabetes mellitus without complications; I10 Essential (primary) hypertension; K21.9 Gastro-esophageal reflux disease without esophagitis; Z79.82 Long term (current) use of aspirin; Z79.4 Long term (current) use of insulin; Z88.0 Allergy status to penicillin; Z91.040 Latex allergy status; Z88.8 Allergy status to other drugs, medicaments and biological substances; Z88.1 Allergy status to other antibiotic agents
CPT/HCPCS: 36415; 74177; 80053; 81001; 81025; 85025; 96374-59; 96375; 99284-25; A9270; J1885; J2405; J3010; Q9967

== ENCOUNTER 2025-01-17 06:12 | Emergency (ER) | payer OTHER ==
[~2025-01-17] VITALS: Ht 144.8 cm; Wt 120.0 kg
[~2025-01-17 06:12] MED LIST changes: +TIZA4 PO
[2025-01-17] MEDS ORDERED: Morphine Sulfate 4 MG/1 ML Injection IV ONE (07:10)
[2025-01-17] MEDS ORDERED: NS 1,000 ML IV SCH (07:10)
[2025-01-17] MEDS ORDERED: Ondansetron HCl 2 MG / ML 2ML Vial IV ONE (07:45)
[2025-01-17 08:04] LABS: BASOPHILS ABSOLUTE AUTO 0.05 K/mm3 (0.00-0.23); BASOPHILS PERCENT AUTO 1 % (0-2); EOSINOPHILS ABSOLUTE AUTO 0.27 K/mm3 (0.00-0.68); EOSINOPHILS PERCENT AUTO 3 % (0-6); Hematocrit 47.2 % (33.0-51.0); Hemoglobin 15.7 g/dL (11.5-16.0); IMMATURE GRAN ABSOLUTE AUTO 0.03 K/mm3 (0.00-0.10); IMMATURE GRAN PERCENT AUTO 0 % (0-1); LYMPHOCYTES ABSOLUTE AUTO 2.25 K/mm3 (0.84-5.20); LYMPHOCYTES PERCENT AUTO 23 % (21-46); MONOCYTES ABSOLUTE AUTO 0.50 K/mm3 (0.16-1.47); MONOCYTES PERCENT AUTO 5 % (4-13); Mean Corpuscular HGB Conc 33.3 g/dL (31.5-36.5); Mean Corpuscular Volume 93 fL (80-100); NEUTROPHILS ABSOLUTE AUTO 6.77 K/mm3 (1.96-9.15); NEUTROPHILS PERCENT AUTO 69 % (41-73); NRBC ABSOLUTE 0.00 K/mm3 (0.00-0.02); NRBC Auto 0.0 /100 WBC (0.0-0.2); Platelet Count 160 K/mm3 (150-400); RDW Coefficient Variation 12.9 % (11.7-14.2); RDW Standard Deviation 43.6 fL (35.1-46.3)
[2025-01-17 08:19] LABS: Anion Gap 8.0 mmol/L (3-11); Blood Urea Nitrogen 13.0 mg/dL (8-24); CO2, Blood 27.0 mmol/L (21-32); Calcium, Blood 9.3 mg/dL (8.5-10.1); Chloride, Blood 106.0 mmol/L (98-108); Creatinine, Blood 0.76 mg/dL (0.40-1.00); Glucose, Blood 288.0 mg/dL (70-99); Potassium, Blood 4.4 mmol/L (3.5-5.5); Sodium, Blood 137.0 mmol/L (136-145)
[2025-01-17] MEDS ORDERED: Methyl Salicylate/Menth/Camph 57 GM TUBE TOP ONE (08:35)
[2025-01-17] MEDS ORDERED: Lidocaine 4% 1 Patch TOP ONE (08:40)
[2025-01-17 10:28] LABS: Source, Urine Clean Catch
[2025-01-17 10:33] LABS: Bilirubin, Urine Neg (Neg); Glucose Qualitative, Urine 4+ (Neg); Ketones, Urine Neg (Neg); Leukocyte Esterase, Urine Neg (Neg); Protein, Urine 2+ (Neg); Specific Gravity, Urine 1.010 (1.003-1.022); Urobilinogen, Urine NORM (Normal)
[2025-01-17 10:56] LABS: Color, Urine Pale Yellow (P-Yellow)
[2025-01-17 10:57] LABS: White Blood Cells, Urine 0-2 /hpf (0-5)
[2025-01-17] MEDS ORDERED: OXAYDO5 M1 PO (11:36)
[2025-01-17 11:48] VITALS: BP 165/87
== END 2025-01-17 11:48 | disposition home or self-care (01) ==
LOC: ER 06:12
PROVIDERS: Student in an Organized Health Care Education/Training Program
DX: R10.A2 Flank pain, left side (principal); E11.65 Type 2 diabetes mellitus with hyperglycemia; I10 Essential (primary) hypertension; K21.9 Gastro-esophageal reflux disease without esophagitis; F17.210 Nicotine dependence, cigarettes, uncomplicated; Z88.2 Allergy status to sulfonamides; Z88.1 Allergy status to other antibiotic agents; Z88.0 Allergy status to penicillin; Z88.8 Allergy status to other drugs, medicaments and biological substances; Z91.040 Latex allergy status; Z79.84 Long term (current) use of oral hypoglycemic drugs; Z79.4 Long term (current) use of insulin; Z79.82 Long term (current) use of aspirin; Z79.899 Other long term (current) drug therapy
CPT/HCPCS: 71046; 80048; 81001; 85025; 96374-59; 96375; 99284-25; A9270; J2270; J2405; J7030